=== PATIENT | female | born 2000 | race Caucasian/White ===

== ENCOUNTER 2019-08-09 09:36 | Emergency (ER) | payer SELFPAY ==
--- NOTE | 2019-08-09 11:13 | CT ---
CT HEAD WITHOUT CONTRAST: Date: 08/09/2019 HISTORY: Headache. FINDINGS: Ventricles have normal size and position. No evidence of intracranial mass or hemorrhage. No edema. S inuses and mastoids are well aerated. IMPRESSION: Unremarkable head CT. POS: [facility]
== END 2019-08-09 11:31 | disposition home or self-care (01) ==
LOC: ERS 09:36
DX: G62.9 Polyneuropathy, unspecified (principal)
CPT/HCPCS: 70450